=== PATIENT | male | born 2000 | race Caucasian/White ===

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

== ENCOUNTER 2020-11-27 20:13 | Emergency (ER) | payer SELFPAY ==
[2020-11-27] MEDS ORDERED: Bacitracin 1 PK ONE (20:53)
[2020-11-27] MEDS ORDERED: Lidocaine 1% w/Epinephrine 1:100K 20 ML VIAL ONE (20:53)
[2020-11-27] MEDS ORDERED: TETANUS, DIPHTHERIA TOX,ADULT (TDVAX) 0.5 ML VIAL IM ONE (20:53)
[2020-11-27] MEDS ORDERED: Lidocaine 1% PF 5 ML VIAL ONE (20:55)
== END 2020-11-27 21:22 | disposition home or self-care (01) ==
LOC: BURERS 20:13
DX: S61.211A Laceration without foreign body of left index finger without damage to nail, initial encounter (principal); S61.213A Laceration without foreign body of left middle finger without damage to nail, initial encounter; S61.217A Laceration without foreign body of left little finger without damage to nail, initial encounter; Z23 Encounter for immunization; F17.210 Nicotine dependence, cigarettes, uncomplicated; W25.XXXA Contact with sharp glass, initial encounter
CPT/HCPCS: 12001; 90471; 90714

== ENCOUNTER 2021-04-10 22:54 | Emergency (ER) | payer OTHER, SELFPAY ==
[2021-04-10 23:17] LABS: Bilirubin Negative (Negative); Blood, Urine Negative (Negative); Clarity Clear (Clear); Glucose, Urine (Dipstick) Negative (Negative); Ketone, Urine Negative (Negative); Leukocyte Negative (Negative); Nitrite Negative (Negative); Protein, Urine (Dipstick) Negative (Neg-Trace); Specific Gravity, Urine 1.025 (1.005-1.030); pH, Urine 6.5 (5.0-9.0)
[2021-04-10] MEDS ORDERED: Doxycycline 100 MG CAP ONE (23:34)
[2021-04-12 15:16] LABS: Chlam.trachomatis by PCR,Urine Not Detected (NotDetected)
== END 2021-04-10 23:35 | disposition home or self-care (01) ==
LOC: BURERS 22:54
DX: N48.1 Balanitis (principal); F17.210 Nicotine dependence, cigarettes, uncomplicated
CPT/HCPCS: 81003; 87491; 87591; 99283

== ENCOUNTER 2021-05-08 13:58 | Emergency (ER) | payer SELFPAY | END 2021-05-08 14:54 | disposition home or self-care (01) | LOC: BURERS 13:58 | DX: B34.9 Viral infection, unspecified (principal); F17.210 Nicotine dependence, cigarettes, uncomplicated | CPT/HCPCS: 87804; 99283 ==

== ENCOUNTER 2021-05-12 19:40 | Emergency (ER) | payer SELFPAY | END 2021-05-12 20:25 | disposition home or self-care (01) | LOC: BURERS 19:40 | DX: S83.92XA Sprain of unspecified site of left knee, initial encounter (principal); F17.290 Nicotine dependence, other tobacco product, uncomplicated; X50.9XXA Other and unspecified overexertion or strenuous movements or postures, initial encounter ==

== ENCOUNTER 2021-07-31 19:52 | Emergency (ER) | payer SELFPAY ==
[2021-07-31] MEDS ORDERED: Ketorolac Tromethamine 30 MG/ML VIAL ONE (20:24)
[2021-07-31] MEDS ORDERED: Dexamethasone 10 MG/ML VIAL ONE (20:24)
[2021-07-31] MEDS ORDERED: Metoclopramide HCl 10 MG/2 ML VIAL ONE (20:24)
[2021-07-31] MEDS ORDERED: diphenhydrAMINE 50 MG/ML VIAL ONE (20:24)
[2021-07-31 20:35] LABS: #Lymphocytes 2.4 thou/uL (1.20-3.40); #Monocytes 0.4 thou/uL (0.11-0.59); #Neutrophils 4.5 thou/uL (1.40-6.50); %Basophils 0.6 % (0.0-1.0); %Eosinophils 0.6 % (0.0-10.0); %Lymphocytes 32.9 % (21.0-51.0); %Monocytes 5.6 % (0.0-10.0); %Neutrophils 60.3 % (42.0-75.0); Hemoglobin 15.8 g/dL (14.0-18.0); Mean Corpuscular HGB CONC 33.1 g/dL (32.0-36.0); Mean Corpuscular Hemoglobin 29.4 pg (27.0-31.0); Mean Corpuscular Volume 88.8 fL (78.0-98.0); Mean Platelet Volume 8.7 fL (7.4-10.4); Platelet Count 199 thou/uL (130-400); RBC Distribution Width 12.3 % (11.5-14.5); Red Blood Cell (RBC) Count 5.38 mill/uL (4.70-6.10); White Blood Cell (WBC) Count 7.4 thou/uL (4.8-10.8)
[2021-07-31 20:43] LABS: INR-International Normal Ratio 0.9; Prothrombin Time 12.4 sec (12.0-14.7)
[2021-07-31 20:52] LABS: ALT (SGPT) 332 U/L (8-55); AST (SGOT) 116 U/L (5-34); Albumin 4.7 g/dL (3.5-5.0); Alkaline Phosphatase 94 U/L (40-110); Anion Gap 18 mmol/L (10-20); BUN (Urea Nitrogen) 11 mg/dL (8.9-20.6); Bilirubin, Total 0.9 mg/dL (0.2-1.2); Calc. Creatinine Clearance 0 mL/min (70-130); Calcium 9.4 mg/dL (7.8-10.44); Carbon Dioxide 24 mmol/L (22-29); Chloride 104 mmol/L (98-107); Globulin 3.6 g/dL (2.4-3.5); Glucose 86 mg/dL (70-105); Potassium 4.2 mmol/L (3.5-5.1); Protein, Total 8.3 g/dL (6.0-8.3); Sodium 142 mmol/L (136-145)
== END 2021-07-31 21:30 | disposition home or self-care (01) ==
LOC: BURERS 19:52
DX: G43.909 Migraine, unspecified, not intractable, without status migrainosus (principal); F17.290 Nicotine dependence, other tobacco product, uncomplicated
CPT/HCPCS: 36415; 80053; 85025; 85610; 96374; 96375; J1100; J1200; J1885; J2765

== ENCOUNTER 2022-02-12 21:26 | Emergency (ER) | payer SELFPAY | END 2022-02-12 21:50 | disposition home or self-care (01) | LOC: BURERS 21:26 | DX: H00.012 Hordeolum externum right lower eyelid (principal); F17.290 Nicotine dependence, other tobacco product, uncomplicated | CPT/HCPCS: 99283 ==

== ENCOUNTER 2022-04-16 15:27 | Emergency (ER) | payer SELFPAY | END 2022-04-16 15:53 | disposition home or self-care (01) | LOC: BURERS 15:27 | DX: J02.9 Acute pharyngitis, unspecified (principal); F17.290 Nicotine dependence, other tobacco product, uncomplicated | CPT/HCPCS: 87081; 87430; 99283 ==